=== PATIENT | female | born 2000 | race African-American/Black ===

== ENCOUNTER 2024-07-09 19:33 | Emergency (ER) | payer SELFPAY ==
[~2024-07-09] VITALS: Ht 162.6 cm; Wt 52.0 kg
[2024-07-09 19:35] VITALS: O2SAT 95
[2024-07-09 19:45] VITALS: BP 161/120; PULSE 121; RESP 30; TEMP 36.8; O2SAT 96
== END 2024-07-09 20:59 | disposition left against medical advice (07) ==
LOC: ER 19:33
DX: F41.9 Anxiety disorder, unspecified (principal); Z53.21 Procedure and treatment not carried out due to patient leaving prior to being seen by health care provider
CPT/HCPCS: 99285